=== PATIENT | male | born 1980 | race Caucasian/White ===

== ENCOUNTER 2017-02-13 23:10 | Inpatient (IN) | payer OTHER ==
[~2017-02-13] VITALS: Ht 165.1 cm; Wt 57.1 kg
[2017-02-14 01:19] VITALS: BP 97/53; PULSE 64; RESP 18; TEMP 97.5; O2SAT 96
[2017-02-14] MEDS ORDERED: ACETAMINOPHEN 325 MG TAB PO PRN (01:45)
[2017-02-14] MEDS ORDERED: ALUMINUM/MAGNESIUM/SIMETH 30 ML CUP PO PRN (01:45)
[2017-02-14] MEDS ORDERED: MAGNESIUM HYDROXIDE SUSP 30 ML CUP PO PRN (01:45)
[2017-02-14] MEDS ORDERED: LORazepam 1 MG TAB PO PRN (01:45)
[2017-02-14 05:58] VITALS: BP 98/53; PULSE 51; RESP 16; TEMP 97.5; O2SAT 97
[2017-02-14] MEDS ORDERED: NICOTINE 21 MG/24 HR PATCH T-DERMAL SCH (09:00)
[2017-02-14] MEDS ORDERED: LEXA10TA PO (11:05)
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
[2017-02-14] MEDS ORDERED: REMOVE OLD NICOTINE PATCH T-DERMAL SCH (21:00)
== END 2017-02-14 13:40 | disposition home or self-care (01) | DRG 882 ==
LOC: H270 02-14 01:10
PROVIDERS: ADMIT Psychiatry & Neurology Psychiatry; ATTEND Psychiatry & Neurology Psychiatry
DX: F43.12 Post-traumatic stress disorder, chronic (principal); Z59.0 Homelessness